=== PATIENT | male | born 1980 | race Caucasian/White ===

== ENCOUNTER 2020-05-14 00:22 | Emergency (ER) | payer OTHER ==
[2020-05-14] MEDS ORDERED: KEFLEX CAP 250250 MG PO (01:31)
[2020-05-14] MEDS ORDERED: LODINE CAP 300300 MG PO (01:31)
== END 2020-05-14 02:00 | disposition home or self-care (01) ==
LOC: ER1 00:22
DX: S66.325A Laceration of extensor muscle, fascia and tendon of left ring finger at wrist and hand level, initial encounter (principal); S61.215A Laceration without foreign body of left ring finger without damage to nail, initial encounter; S61.213A Laceration without foreign body of left middle finger without damage to nail, initial encounter; F17.210 Nicotine dependence, cigarettes, uncomplicated; Z88.8 Allergy status to other drugs, medicaments and biological substances; W26.8XXA Contact with other sharp object(s), not elsewhere classified, initial encounter; Y92.009 Unspecified place in unspecified non-institutional (private) residence as the place of occurrence of the external cause
CPT/HCPCS: 12002; 96372; 99282; J0690